=== PATIENT | male | born 1975 | race African-American/Black ===

== ENCOUNTER 2023-08-06 21:20 | Emergency (ER) | payer SELFPAY ==
[2023-08-06 21:34] VITALS: BP 139/79; PULSE 64; RESP 19; TEMP 98.1; BMI 30.8
[2023-08-06] MEDS ORDERED: LIDOCAINE 4% PATCH TP ONE ×2 (22:11→22:16)
[2023-08-06] MEDS ORDERED: ACETAMINOPHEN 500 MG TABLET (FP) ONE (22:11)
[2023-08-06] MEDS: LIDOCAINE 4% PATCH TP ONE (22:17)
[2023-08-06] MEDS: ACETAMINOPHEN 500 MG TABLET (FP) PO ONE (22:18)
[2023-08-07] MEDS ORDERED: LIDOCAINE PATCH REMOVAL MC SCH (10:00)
== END 2023-08-06 22:45 | disposition home or self-care (01) ==
LOC: JER 21:20
DX: S49.92XA Unspecified injury of left shoulder and upper arm, initial encounter (principal); W01.0XXA Fall on same level from slipping, tripping and stumbling without subsequent striking against object, initial encounter; Y93.02 Activity, running
CPT/HCPCS: 73030-TC-LT-FY; 99283-25